=== PATIENT | female | born 1960 | race Caucasian/White ===

== ENCOUNTER → 2018-02-09 | Outpatient (CLI) | payer OTHER ==
[~2018-02-09] MED LIST: ACETAMINOPHEN325 MG PO; AMBIEN 5 MG TABL5 MG PO; GAS RELIEF 8080 MG PO; HYDROCODON-ACE1 EAC5 PO; IBUPROFEN 600600 M1 PO; TOPAMAX 100 MG100 MG PO; TOPAMAX50 MG PO
== END ==
LOC: M.RAD 10:26
DX: Z12.31 Encounter for screening mammogram for malignant neoplasm of breast (principal); N39.0 Urinary tract infection, site not specified; R31.9 Hematuria, unspecified

== ENCOUNTER → 2018-02-28 | Outpatient (CLI) | payer OTHER | LOC: M.CT 08:57 | DX: R31.9 Hematuria, unspecified (principal); R10.9 Unspecified abdominal pain ==

== ENCOUNTER → 2019-07-02 | Outpatient (CLI) | payer OTHER ==
[2019-07-02 10:12] LABS: HEMATOCRIT 39.4 % (37.0-47.0); HEMOGLOBIN 13.4 gm/dL (12.0-15.0); MCHC 33.9 g/dL (28.0-37.0); MCV 88.6 fL (80.0-100.0); MPV 7.5 fl. (7.2-11.1); RBC 4.45 mil/uL (4.20-5.00); RDW-CV 13.3 % (10.5-14.5); URINE BILIRUBIN NEGATIVE (Negative); URINE BLOOD 1+ (Negative); URINE CLARITY CLEAR; URINE COLOR YELLOW; URINE GLUCOSE-RANDOM NEGATIVE (Negative); URINE KETONES NEGATIVE (Negative); URINE LEUKOCYTES NEGATIVE (Negative); URINE NITRITE NEGATIVE (Negative); URINE PROTEIN NEGATIVE (Negative); URINE SPECIFIC GRAVITY >= 1.030 (1.005-1.030); URINE UROBILINOGEN 0.2 E.U./dl (0.2-1.0); WBC 5.7 thou/uL (4.0-11.0)
[2019-07-02 10:20] LABS: BACTERIA 1-9 Few /HPF (None Seen); CASTS None Seen /LPF (None Seen); CRYSTALS None Seen /LPF (None Seen); MUCUS >6 Heavy strn/LPF (None Seen); SQUAMOUS 0-3 Few /LPF (0-3); URINE RBC 0-2 Rare /HPF (0-2); URINE WBC 0-5 Rare /HPF (0-5)
[2019-07-02 11:34] LABS: ALKALINE PHOSPHATASE 76 U/L (46-116); ANION GAP 7 mmol/L (7-16); BUN 14 mg/dL (7-18); CALCIUM 8.4 mg/dL (8.5-10.1); CHLORIDE 110 mmol/L (98-107); CHOLESTEROL 194 mg/dL (<200); CO2 25 mmol/L (21-32); GLUCOSE 102 mg/dL (70-99); HDL CHOLESTEROL 60 mg/dL (>40); LDL CHOLESTEROL 123 mg/dL (<100); POTASSIUM 4.1 mmol/L (3.5-5.1); SGOT 17 U/L (15-37); SGPT 29 U/L (30-65); SODIUM 142 mmol/L (136-145); TC:HDL 3.2 Ratio (Not establshd); TOTAL BILIRUBIN 0.3 mg/dL (<0.1-1.0); TOTAL PROTEIN 7.6 g/dL (6.4-8.2); TRIGLYCERIDE 57 mg/dL (<150); VLDL 11 mg/dL (<40)
[2019-07-02 11:35] LABS: SERUM ASSESSMENT Clear
== END ==
LOC: M.RAD 09:00
DX: G43.909 Migraine, unspecified, not intractable, without status migrainosus (principal); R59.9 Enlarged lymph nodes, unspecified

== ENCOUNTER → 2019-07-05 | Outpatient (CLI) | payer OTHER | LOC: M.ULTRA 08:00 | DX: R10.9 Unspecified abdominal pain (principal); R11.10 Vomiting, unspecified ==

== ENCOUNTER → 2019-07-16 | Outpatient (CLI) | payer OTHER | LOC: M.CT 07:28 | DX: R10.9 Unspecified abdominal pain (principal); K56.41 Fecal impaction ==